=== PATIENT | male | born 1945 | race Two or more races ===

== ENCOUNTER 2024-10-17 16:26 | Emergency (ER) | payer OTHER ==
[~2024-10-17] VITALS: Ht 180.3 cm; Wt 104.5 kg
[2024-10-17 16:51] VITALS: BP 111/64; PULSE 64; RESP 20; TEMP 97.6; O2SAT 95
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
--- NOTE | 2024-10-17 17:35 | DVH ---
CLINICAL INDICATION: FALL TECHNIQUE: 4 radiographic views of the left hip were obtained. Comparison: None FINDINGS/IMPRESSION: A radiopaque #8 Is noted in the right left pelvis. Femurs are normal alignment. There are no fractures or dislocations.
--- NOTE | 2024-10-17 17:51 | DVH ---
EXAM: CT CT L HIP WITH OUT CONTRAST HISTORY: FALL COMPARISON: None TECHNIQUE: Noncontrast axial CT images of the left hip were performed. Sagittal and coronal reformatt ed images were obtained. This CT exam was performed using one or more of the following dose reduction techniques: Automated exposure control, adjustment of the mA and/or kV according to patient size, or use of iterative reconstruction technique. Radiation Dose Information: CT Dose: CTDI volume is mGy. Dose-length product is mGy*cm. FINDINGS: Acute non displaced intraarticular fracture at the anterior wall of the left acetabulum. There is als o superior extension of the non displaced fracture into the anterior acetabular column. The alignment of the left hip joint is within normal limits. No significant degenerative changes. IMPRESSION: Acute non displaced intraarticular fracture at the anterior wall of the left acetabulum. There is als o superior extension of the non displaced fracture into the anterior acetabular column.
[2024-10-17] MEDS ORDERED: HYDR-4798 PO (18:21)
[2024-10-17] MEDS: HYDROcodone-ACET 10/325MG TAB PO ONE (18:39)
== END 2024-10-17 18:39 | disposition left against medical advice (07) ==
LOC: ER 16:26
DX: S32.432A Displaced fracture of anterior column [iliopubic] of left acetabulum, initial encounter for closed fracture (principal); E11.9 Type 2 diabetes mellitus without complications; Z87.442 Personal history of urinary calculi; Z90.49 Acquired absence of other specified parts of digestive tract; Z98.890 Other specified postprocedural states; Z79.899 Other long term (current) drug therapy; V19.9XXA Pedal cyclist (driver) (passenger) injured in unspecified traffic accident, initial encounter; Y93.55 Activity, bike riding; Y92.488 Other paved roadways as the place of occurrence of the external cause; Y99.8 Other external cause status
CPT/HCPCS: 73502; 73700